=== PATIENT | female | born 1950 | race Caucasian/White ===

== ENCOUNTER 2021-03-27 18:25 | Emergency (ER) | payer MEDICARE ==
--- NOTE | 2021-03-27 19:40 | EDM.PDOC ---
ED HPI GENERAL MEDICAL PROBLEM - General Chief Complaint: Genitourinary Problem Stated Complaint: LEG PAIN Time Seen by Provider: 03/27/21 19:30 Source of Information: Reports: Patient History Limitations: Reports: No Limitations - History of Present Illness INITIAL COMMENTS - FREE TEXT/NARRATIVE: Karin Lamb is a 70-year-old female presenting to the ED for evaluation of possible UTI. She awoke this morning with significant dysuria, dark cloudy urine, and bladder spasms. 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 She is seeing an oncologist who has been managing her left foot pain but she wants a second opinion since she is here to evaluate why she is having increasing pain and swelling of her left foot especially over the second and third metatarsals. This has been ongoing for months and worsening. She does have bilateral pedal edema and erythema with slight increase in temperature of both lower extremities. She denies any fever, chills, back pain other than her chronic pain due to the metastasis. Had no nausea, vomiting, or diarrhea. Pelvic Pain Score (Numeric/FACES): 5 - Related Data Allergies Allergy/AdvReac Type Severity Reaction Status Date / Time No Known Allergies Allergy Verified 03/27/21 18:58 Home Meds: Home Meds Citalopram [Citalopram HBr] 40 mg PO DAILY 03/27/21 [History] Furosemide [Lasix] 20 mg PO ASDIRECTED 03/27/21 [History] Gabapentin [Neurontin] 300 mg PO TID 03/27/21 [History] Levothyroxine 125 mcg PO ACBREAKFAST 03/27/21 [History] [employer] Carbonate 900 mg PO DAILY 03/27/21 [History] Magnesium 3 tab PO DAILY 03/27/21 [History] Mecobalamin [B12 Active] 1 tab PO DAILY 03/27/21 [History] Morphine [MS Contin] 30 mg PO Q12H 03/27/21 [History] Rivaroxaban [Xarelto] 15 mg PO DAILY 03/27/21 [History] Sennosides [Senna] 2 cap PO BID 03/27/21 [History] busPIRone [Buspar] 30 mg PO BID 03/27/21 [History] traZODone 100 mg PO BEDTIME 03/27/21 [History] Past Medical History HEENT History: Reports: Glaucoma, Impaired Vision Cardiovascular History: Reports: Afib Respiratory History: Reports: Asthma 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: Neurological History: Reports: Neuropathy, Peripheral Psychiatric History: Reports: Anxiety Endocrine/Metabolic History: Reports: Hypomagnesemia Oncologic (Cancer) History: Reports: Colon, Liver, Lung - Infectious Disease History Infectious Disease History: Reports: Chicken Pox, Influenza, Measles - Past Surgical History Female Surgical History: Reports: Salpingo-Oophorectomy Social & Family History - Tobacco Use Tobacco Use Status *Q: Never Tobacco User - Caffeine Use Caffeine Use: Reports: None - Recreational Drug Use Recreational Drug Use: No ED ROS GENERAL - Review of Systems Review Of Systems: See Below Constitutional: Reports: No Symptoms HEENT: Reports: No Symptoms Respiratory: Reports: No Symptoms Cardiovascular: Reports: Edema (Bilateral lower extremity edema) Endocrine: Reports: No Symptoms GI/Abdominal: Reports: Abdominal Pain (Suprapubic pain) : Reports: Dysuria, Frequency, Urgency Musculoskeletal: Reports: Foot Pain (Left foot pain and redness in bilateral lower extremities) Skin: Reports: Erythema (Bilateral lower extremities) Neurological: Reports: No Symptoms Psychiatric: Reports: No Symptoms Hematologic/Lymphatic: Reports: No Symptoms Immunologic: Reports: No Symptoms ED EXAM, RENAL/ - Physical Exam Exam: See Below Exam Limited By: No Limitations General Appearance: Alert, No Apparent Distress, Anxious Eye Exam: Bilateral Eye: EOMI, PERRL Throat/Mouth: Normal Inspection, Normal Oropharynx, Normal Voice, No Airway Compromise Head: Atraumatic, Normocephalic Neck: Normal Inspection, Supple. No: Lymphadenopathy (R), Lymphadenopathy (L) Respiratory/Chest: No Respiratory Distress, Lungs Clear, Normal Breath Sounds Cardiovascular: Normal Peripheral Pulses, Regular Rate, Rhythm, No Murmur GI/Abdominal: Normal Bowel Sounds, Soft, Tender (Suprapubic). No: Guarding, Rebound Back Exam: No: CVA Tenderness (R), CVA Tenderness (L) Extremities: Pedal Edema, Joint Swelling (Bilateral ankles left greater than right), Increased Warmth (Bilateral lower extremities from low calf to feet), Other (Tenderness to palpation over the left distal second and third metatarsals) Neurological: Alert, Oriented, Normal Cognition, No Motor/Sensory Deficits Skin Exam: Warm, Erythema (Bilateral lower extremities from low calf to feet), Increased Warmth (Bilateral lower extremities from low calf to feet) Lymphatic: No Adenopathy Course - Vital Signs Last Recorded V/S: Last Vital Signs Temp 36.3 C 03/27/21 19:08 Pulse 72 03/27/21 19:08 Resp 20 03/27/21 19:08 BP 148/55 H 03/27/21 19:08 Pulse Ox 94 L 03/27/21 19:08 - Orders/Labs/Meds Orders: Active Orders 24 hr Category Date Time Status Foot Comp Min 3V Lt [CR] Stat Exams 03/27/21 19:41 Taken Labs: Laboratory Tests 03/27/21 03/27/21 03/27/21 Range/Units 18:54 19:41 19:41 WBC 5.8 (4.5-11.0) K/uL RBC 2.65 L (3.30-5.50) M/uL Hgb 8.1 L (12.0-15.0) g/dL Hct 26.7 L (36.0-48.0) % MCV 101 H (80-98) fL MCH 31 (27-31) pg MCHC 30 L (32-36) % Plt Count 74 L (150-400) K/uL Neut % (Auto) 75.7 H (36-66) % Lymph % (Auto) 9.8 L (24-44) % [place] % (Auto) 13.6 H (2-6) % Eos % (Auto) 0.7 L (2-4) % Baso % (Auto) 0.2 (0-1) % C-Reactive Protein 1.66 H (0.0-0.3) mg/dL Urine Color Yellow (YELLOW) Urine Appearance Turbid A (CLEAR) Urine pH 7.0 (5.0-8.0) Ur Specific [place] 1.020 (1.008-1.030) Urine Protein 100 H (NEGATIVE) mg/dL Urine Glucose (UA) Negative (NEGATIVE) mg/dL Urine Ketones Negative (NEGATIVE) mg/dL Urine Occult Blood Large H (NEGATIVE) Urine Nitrite Negative (NEGATIVE) Urine Bilirubin Negative (NEGATIVE) Urine Urobilinogen 1.0 (0.2-1.0) EU/dL Ur Leukocyte Esterase Large H (NEGATIVE) Urine RBC Packed H (0-5) Urine WBC Packed H (0-5) Ur Epithelial Cells Not seen Amorphous Sediment Occasional Urine Bacteria Moderate Urine Mucus Occasional - Re-Assessments/Exams Free Text/Narrative Re-Assessment/Exam: 03/27/21 20:23 on examination, the patient has bilateral lower extremity redness, swelling, and increased temperature from the low calf to the toes. She has significant tenderness to palpation over the distal second and third metatarsals on the left. Her cancer initially was anal cancer with metastasis to the lung, liver, and now spine. I am concerned that there may be a metastasis to the second metatarsal so we will get an x-ray to evaluate for this. Her urinalysis is very significant for a UTI with large leukocyte esterase and packed field with WBCs and RBCs. We will need to start her on antibiotics for this. Although there is increased redness, swelling, and tenderness in the lower extremities, I am not convinced that this is an infection so we will get a CBC and CRP to evaluate for this. As the redness and swelling has been ongoing for several months this would contradict this being an acute infection and more likely a chronic inflammatory response causing left- sided plantar fasciitis and bilateral pedal edema. 03/27/21 20:27 x-ray of the left foot shows 2 screws securing a fracture through the distal first metatarsal. There is adequate healing of this fracture. There is no lytic lesion seen on either the second or third metatarsals to account for the patient's pain. Her CBC shows a leukocyte count of 5.8 with a hemoglobin of 8.1, hematocrit of 26.7 and a platelet count of 74,000. Her C- reactive protein is elevated at 1.66. We will start the patient on cephalexin 500 mg 3 times a day for 7 days for her UTI. This prescription will be sent out to the [facility] machine. This could potentially also cover any cellulitis if this in fact is what is causing the redness, increased temperature, and pain. In her left foot this is likely plantar fasciitis secondary to chronic inflammation. She has taken the insoles out of her shoes so that they fit properly since she has so much edema, this is likely contributing to the plantar fasciitis. I recommend a high arch support to take the pressure off the fascia. Departure - Departure Time of Disposition: 20:30 Disposition: Home, Self-Care Clinical Impression: Plantar fasciitis of left foot, Pedal edema Urinary tract infection Qualifiers: Urinary tract infection type: acute cystitis Hematuria presence: with hematuria Qualified Code(s): N30.01 - Acute cystitis with hematuria - Discharge Information Instructions: Plantar Fasciitis, Urinary Tract Infection, Adult, [id number] Referrals: PCP,None [Primary Care Provider] - Forms: ED Department Discharge Care Plan Goals: Your labs show that you have a significant urinary tract infection. We will culture this to make sure the antibiotic you are using will cover the bacteria growing in your urine. We will contact you within 72 hours if the culture shows resistance of the organism to the antibiotic and change your antibiotic. The antibiotic you will be taking is cephalexin 500 mg 3 times a day. This has been sent out to the [facility] machine so you may start it tonight. You also have evidence for plantar fasciitis which is an acute inflammation of the plantar fascia (arch of the foot). The x-ray of the foot showed the 2 screws in the first metatarsal that repaired the fracture previously but no indication of metastasis to the bones in the foot. For the plantar fasciitis, I recommend wearing a high arch good supporting shoe as the current shoe you are wearing has no arch support and is likely contributing to the development of this condition. You may take Aleve 1 tablet twice daily for the pain. Elevating the feet above the level of the heart may help reduce the swelling. Sepsis Event Note (ED) - Evaluation Sepsis Screening Result: No Definite Risk - Focused Exam Vital Signs: Vital Signs Temp Pulse Resp BP Pulse Ox 03/27/21 19:08 36.3 C 72 20 148/55 H 94 L 03/27/21 18:56 36.3 C 72 20 148/55 H 94 L - Problem List & Annotations (1) Pedal edema SNOMED Code(s): 268089583 Code(s): R60.0 - LOCALIZED EDEMA Status: Acute Priority: Medium Current Visit: Yes (2) Plantar fasciitis of left foot SNOMED Code(s): 275511623 Code(s): M72.2 - PLANTAR FASCIAL FIBROMATOSIS Status: Acute Priority: Medium Current Visit: Yes (3) Urinary tract infection SNOMED Code(s): 68848692 Code(s): N39.0 - URINARY TRACT INFECTION, SITE NOT SPECIFIED Status: Acute Priority: Medium Current Visit: Yes Qualifiers: Urinary tract infection type: acute cystitis Hematuria presence: with he maturia Qualified Code(s): N30.01 - Acute cystitis with hematuria - Problem List Review Problem List Initiated/Reviewed/Updated: Yes - My Orders Last 24 Hours: My Active Orders 03/27/21 19:41 Foot Comp Min 3V Lt [CR] Stat - Assessment/Plan Last 24 Hours: My Active Orders 03/27/21 19:41 Foot Comp Min 3V Lt [CR] Stat
--- NOTE | 2021-03-28 10:24 | CR ---
Foot Comp Min 3V Lt CLINICAL HISTORY: Second and third metatarsal pain FINDINGS: There is no acute fracture or dislocation within the foot. No destructive changes are present. There are fixation screws and some deformity at the distal first metatarsal likely related previous surgery. There is osteoarthritic change and bunion formation at the first MTP joint. There are some mild hammertoe deformities. Patient is a moderate size calcaneal spur. IMPRESSION: No acute bony process. 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
== END 2021-03-27 21:10 | disposition home or self-care (01) ==
LOC: JP.ED 18:25
DX: N30.01 Acute cystitis with hematuria (principal); R60.0 Localized edema; M72.2 Plantar fascial fibromatosis; I48.91 Unspecified atrial fibrillation; Z79.01 Long term (current) use of anticoagulants; Z79.899 Other long term (current) drug therapy
CPT/HCPCS: 36415; 73630-26-LT; 73630-LT; 81001; 85025; 86140; 99284-25

== ENCOUNTER 2021-04-14 18:00 | Inpatient (IN) | payer MEDICARE ==
[2021-04-14] MEDS ORDERED: Sodium Chloride 0.9% 10 ML Syringe FLUSH PRN ×2 (18:53→22:10)
[2021-04-14] MEDS ORDERED: Lactated Ringers 1,000 ML IV SCH (19:00)
--- NOTE | 2021-04-14 19:08 | EDM.PDOC ---
ED HPI GENERAL MEDICAL PROBLEM - General Chief Complaint: Gastrointestinal Problem Stated Complaint: BLEEDING Time Seen by Provider: 04/14/21 18:07 Source of Information: Reports: Patient, Family, RN Notes Reviewed History Limitations: Reports: No Limitations - History of Present Illness INITIAL COMMENTS - FREE TEXT/NARRATIVE: 70-year-old female presents emergency department day complaint of bright red blood per rectum, she has a known history of anal rectal cancer last 18 months diagnosed on colonoscopy. Has went through several rounds of chemotherapy and 2 rounds of radiation treatment. Known metastases to lung liver and bone. She states for this particular event approximately 2 hours prior had bright red blood per rectum has had 2 episodes of bright red blood per rectum does feel lightheaded no nausea vomiting no shortness of breath no chest pain no abdominal discomfort Rectal Pain Score (Numeric/FACES): 3 - Related Data Allergies Allergy/AdvReac Type Severity Reaction Status Date / Time No Known Allergies Allergy Verified 04/14/21 18:32 Home Meds: Home Meds Citalopram [Citalopram HBr] 40 mg PO DAILY 03/27/21 [History] Furosemide [Lasix] 20 mg PO BID 03/27/21 [History] Gabapentin [Neurontin] 300 mg PO TID 03/27/21 [History] Levothyroxine 125 mcg PO ACBREAKFAST 03/27/21 [History] [place] Carbonate 900 mg PO DAILY 03/27/21 [History] Magnesium 3 tab PO DAILY 03/27/21 [History] Mecobalamin [B12 Active] 1 tab PO DAILY 03/27/21 [History] Morphine [MS Contin] 30 mg PO Q12H 03/27/21 [History] Rivaroxaban [Xarelto] 15 mg PO DAILY 03/27/21 [History] Sennosides [Senna] 2 cap PO BID 03/27/21 [History] busPIRone [Buspar] 30 mg PO BID 03/27/21 [History] traZODone 100 mg PO BEDTIME 03/27/21 [History] Past Medical History HEENT History: Reports: Glaucoma, Impaired Vision Cardiovascular History: Reports: Afib Respiratory History: Reports: Asthma 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: Neurological History: Reports: Neuropathy, Peripheral Psychiatric History: Reports: Anxiety Endocrine/Metabolic History: Reports: Hypomagnesemia Oncologic (Cancer) History: Reports: Colon, Liver, Lung - Infectious Disease History Infectious Disease History: Reports: Chicken Pox, Influenza, Measles - Past Surgical History Female Surgical History: Reports: Salpingo-Oophorectomy Social & Family History - Tobacco Use Tobacco Use Status *Q: Never Tobacco User - Caffeine Use Caffeine Use: Reports: None - Recreational Drug Use Recreational Drug Use: No ED ROS GENERAL - Review of Systems Review Of Systems: See Below Constitutional: Reports: No Symptoms Respiratory: Reports: No Symptoms Cardiovascular: Reports: Lightheadedness GI/Abdominal: Reports: Bloody Stool : Reports: No Symptoms ED EXAM, GI/ABD - Physical Exam Exam: See Below Exam Limited By: No Limitations General Appearance: Alert, WD/WN, No Apparent Distress Respiratory/Chest: No Respiratory Distress, Lungs Clear, Normal Breath Sounds, No Accessory Muscle Use, Chest Non-Tender Cardiovascular: Regular Rate, Rhythm, No Murmur GI/Abdominal Exam: Soft, Non-Tender Course - Vital Signs Last Recorded V/S: Last Vital Signs Temp 97.7 F 04/14/21 18:29 Pulse 65 04/14/21 18:58 Resp 16 04/14/21 18:29 BP 119/54 L 04/14/21 18:58 Pulse Ox 97 04/14/21 18:29 - Orders/Labs/Meds Orders: Active Orders 24 hr Category Date Time Status Peripheral IV Care [RC] . DIRECTED Care 04/14/21 18:53 Active RED BLOOD CELLS LP [BBK] Stat Lab 04/14/21 20:14 Ordered TYPE AND SCREEN [BBK] Stat Lab 04/14/21 20:14 Ordered Lactated Ringers [Ringers, Lactated] 1,000 ml Med 04/14/21 19:00 Active IV ASDIRECTED Sodium Chloride 0.9% [Saline Flush] Med 04/14/21 18:53 Active 10 ml FLUSH ASDIRECTED PRN Peripheral IV Insertion Adult [OM.PC] Urgent Oth 04/14/21 18:53 Ordered Transfuse Red Blood Cells [COMM] Stat Oth 04/14/21 20:14 Ordered Medication Orders Lactated Ringer's (Ringers, Lactated) 1,000 mls @ 500 mls/hr IV ASDIRECTED KEI Last Admin: 04/14/21 19:21 Dose: 500 mls/hr Documented by: SALOMON Sodium Chloride (Sodium Chloride 0.9% 10 Ml Syringe) 10 ml FLUSH ASDIRECTED PRN PRN Reason: Keep Vein Open Last Admin: 04/14/21 19:22 Dose: 10 ml Documented by: SALOMON Labs: Laboratory Tests 04/14/21 04/14/21 04/14/21 Range/Units 19:20 19:20 19:20 WBC 18.1 H (4.5-11.0) K/uL RBC 2.47 L (3.30-5.50) M/uL Hgb 7.9 L (12.0-15.0) g/dL Hct 24.9 L (36.0-48.0) % MCV 101 H (80-98) fL MCH 32 H (27-31) pg MCHC 32 (32-36) % Plt Count 39 L (150-400) K/uL Add Manual Diff Yes Neutrophils % (Manual) 85 H (36-66) % Band Neutrophils % 4 L (5-11) % Lymphocytes % (Manual) 3 L (24-44) % Monocytes % (Manual) 7 H (2-6) % Eosinophils % (Manual) 1 L (2-4) % Sodium 138 L (140-148) mmol/L Potassium 3.7 (3.6-5.2) mmol/L Chloride 102 (100-108) mmol/L Carbon Dioxide 28 (21-32) mmol/L Anion Gap 11.7 (5.0-14.0) mmol/L BUN 17 (7-18) mg/dL Creatinine 0.8 (0.6-1.0) mg/dL Est Cr Clr Drug Dosing 53.35 mL/min Estimated GFR (MDRD) > 60 (>60) Glucose 105 (74-106) mg/dL Lactic Acid 0.9 (0.4-2.0) mmol/L Calcium 8.5 (8.5-10.1) mg/dL Total Bilirubin 0.4 (0.2-1.0) mg/dL AST 46 H (15-37) U/L ALT 20 (12-78) U/L Alkaline Phosphatase 367 H (46-116) U/L Total Protein 6.8 (6.4-8.2) g/dL Albumin 2.7 L (3.4-5.0) g/dL Globulin 4.1 H (2.3-3.5) g/dL Albumin/Globulin Ratio 0.7 L (1.2-2.2) Meds: Medications Generic Name Dose Route Start Last Admin Trade Name Scarq PRN Reason Stop Dose Admin Lactated Ringer's 1,000 mls @ 500 mls/hr 04/14/21 19:00 04/14/21 19:21 Ringers, Lactated IV 500 mls/hr ASDIRECTED KEI Administration Sodium Chloride 10 ml 04/14/21 18:53 04/14/21 19:22 Sodium Chloride 0.9% 10 Ml Syringe FLUSH 10 ml ASDIRECTED PRN Administration Keep Vein Open Departure - Departure Time of Disposition: 20:17 Disposition: Admitted As Inpatient 65 Condition: Poor Clinical Impression: Bright red blood per rectum - Discharge Information Referrals: PCP,None [Primary Care Provider] - Forms: ED Department Discharge Sepsis Event Note (ED) - Evaluation Sepsis Screening Result: No Definite Risk - Focused Exam Vital Signs: Vital Signs Temp Pulse Resp BP Pulse Ox 04/14/21 18:58 65 119/54 L 04/14/21 18:29 97.7 F 62 16 129/63 97 04/14/21 18:27 97.7 F 62 16 129/63 97 - My Orders Last 24 Hours: My Active Orders 04/14/21 18:53 Peripheral IV Care [RC] . DIRECTED Sodium Chloride 0.9% [Saline Flush] 10 ml FLUSH ASDIRECTED PRN Peripheral IV Insertion Adult [OM.PC] Urgent 04/14/21 19:00 Lactated Ringers [Ringers, Lactated] 1,000 ml IV ASDIRECTED 04/14/21 20:14 RED BLOOD CELLS LP [BBK] Stat TYPE AND SCREEN [BBK] Stat Transfuse Red Blood Cells [COMM] Stat - Assessment/Plan Last 24 Hours: My Active Orders 04/14/21 18:53 Peripheral IV Care [RC] . DIRECTED Sodium Chloride 0.9% [Saline Flush] 10 ml FLUSH ASDIRECTED PRN Peripheral IV Insertion Adult [OM.PC] Urgent 04/14/21 19:00 Lactated Ringers [Ringers, Lactated] 1,000 ml IV ASDIRECTED 04/14/21 20:14 RED BLOOD CELLS LP [BBK] Stat TYPE AND SCREEN [BBK] Stat Transfuse Red Blood Cells [COMM] Stat Plan: Assessment Acuity = acute Site and laterality = bright red blood per rectum complicated patient with known history of anorectal cancer with metastases to the lung liver bone Etiology = unknown Manifestations = lightheadedness Location of injury = Home Lab values = hemoglobin 18.1 consistent with the leukopenia hemoglobin 7.9 consi stent with macro chromic anemia platelets low at 39 consistent with thrombocytopenia, CMP lactic acid within normal limits Plan Call discussed case with hospitalist on-call he agreed to come evaluate the patient emergency department for admission at 2009 also had a long discussion with her on future outcomes plans and prognosis unsure if colonoscopy is a good approach for her given that she has known history of metastases has gone through 18 months of chemotherapy as well as a couple doses of radiation therapy she would feel better for symptomatic care with a transfusion of blood This note was dictated using i-nexus voice recognition software please call with any questions on syntax or grammar.
--- NOTE | 2021-04-14 21:55 | PCM.HP.2 ---
H&P History of Present Illness - General Date of Service: 04/14/21 Admit Problem/Dx: Admission Diagnosis/Problem Admission Diagnosis/Problem Bleeding Source of Information: Patient, Provider, RN Notes Reviewed History Limitations: Reports: No Limitations - History of Present Illness Initial Comments - Free Text/Narative: Ms. Pacheco is a 70-year-old woman who was admitted through the emergency department with hematochezia and anemia secondary to a lower GI bleed. She denies any previous history of GI bleed. 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 She has been receiving chemotherapy twice monthly and recently completed a course of radiation to her spine. She had been feeling relatively well when she noted 2 large bloody bowel movements at home this evening and presented to the emergency department for further evaluation. Platelets are low at 39,000 and her hemoglobin was found to be 7.9, white blood cell count elevated. She has had no further hematochezia since she is arrived in the emergency department. She is treated with Xarelto, because of a clot that developed associated with her right subclavian port. Rectal Pain Score (Numeric/FACES): 3 - Related Data Allergies/Adverse Reactions: Allergies Allergy/AdvReac Type Severity Reaction Status Date / Time No Known Allergies Allergy Verified 04/14/21 18:32 Home Medications: Home Meds Citalopram [Citalopram HBr] 40 mg PO DAILY 03/27/21 [History] Furosemide [Lasix] 20 mg PO BID 03/27/21 [History] Gabapentin [Neurontin] 300 mg PO TID 03/27/21 [History] Levothyroxine 125 mcg PO ACBREAKFAST 03/27/21 [History] [place] Carbonate 900 mg PO DAILY 03/27/21 [History] Magnesium 3 tab PO DAILY 03/27/21 [History] Mecobalamin [B12 Active] 1 tab PO DAILY 03/27/21 [History] Morphine [MS Contin] 30 mg PO Q12H 03/27/21 [History] Rivaroxaban [Xarelto] 15 mg PO DAILY 03/27/21 [History] Sennosides [Senna] 2 cap PO BID 03/27/21 [History] busPIRone [Buspar] 30 mg PO BID 03/27/21 [History] traZODone 100 mg PO BEDTIME 03/27/21 [History] Past Medical History HEENT History: Reports: Glaucoma, Impaired Vision Cardiovascular History: Reports: Afib Respiratory History: Reports: Asthma [employer] History: Reports: Neurological History: Reports: Neuropathy, Peripheral Psychiatric History: Reports: Anxiety Endocrine/Metabolic History: Reports: Hypomagnesemia Oncologic (Cancer) History: Reports: Colon, Liver, Lung - Infectious Disease History Infectious Disease History: Reports: Chicken Pox, Influenza, Measles - Past Surgical History Female Surgical History: Reports: Salpingo-Oophorectomy Social & Family History - Tobacco Use Tobacco Use Status *Q: Never Tobacco User - Caffeine Use Caffeine Use: Reports: None - Recreational Drug Use Recreational Drug Use: No H&P Review of Systems - Review of Systems: Review Of Systems: See Below General: Reports: Weakness, Fatigue. Denies: Fever, Chills HEENT: Reports: No Symptoms Pulmonary: Reports: No Symptoms Cardiovascular: Reports: No Symptoms Gastrointestinal: Reports: Hematochezia. Denies: Abdominal Pain, Difficulty Swallowing, Distension, Hematemesis, Melena, Nausea, Vomiting Genitourinary: Reports: No Symptoms Musculoskeletal: Reports: No Symptoms Skin: Reports: No Symptoms Psychiatric: Reports: No Symptoms Neurological: Reports: No Symptoms Hematologic/Lymphatic: Reports: No Symptoms Immunologic: Reports: No Symptoms Exam - Exam Exam: See Below - Vital Signs Vital Signs: Last Vital Signs Temp 97.7 F 04/14/21 18:29 Pulse 60 04/14/21 21:08 Resp 16 04/14/21 18:29 BP 153/70 H 04/14/21 21:08 Pulse Ox 97 04/14/21 21:08 Weight: 175 lb - Exam General: Alert, Oriented, Cooperative, Mild Distress HEENT: Conjunctiva Clear, Hearing Intact, Mucosa Moist & [place], Normal Nasal Septum, Posterior Pharynx Clear, Pupils Equal Neck: Supple, Trachea Midline, +2 Carotid Pulse wo Bruit Lungs: Clear to Auscultation, Normal Respiratory Effort Cardiovascular: Regular Rate, Regular Rhythm, Normal S1, Normal S2, Systolic Murmur. No: Diastolic Murmur GI/Abdominal Exam: Soft, Non-Tender, No Organomegaly, No Distention Back Exam: Normal Inspection, Full Range of Motion Extremities: Non-Tender, No Pedal Edema Skin: Warm, Dry, Intact Neurological: Cranial Nerves Intact, Strength Equal Bilateral, Normal Speech, Normal Tone, Sensation Intact. No: Focal Deficit Neuro Extensive - Mental Status: Alert, Oriented x3, Normal Mood/Affect, Normal Cognition, Memory Intact - Patient Data Lab Results Last 24 hrs: Laboratory Results - last 24 hr 04/14/21 04/14/21 04/14/21 Range/Units 19:20 19:20 19:20 WBC 18.1 H (4.5-11.0) K/uL RBC 2.47 L (3.30-5.50) M/uL Hgb 7.9 L (12.0-15.0) g/dL Hct 24.9 L (36.0-48.0) % MCV 101 H (80-98) fL MCH 32 H (27-31) pg MCHC 32 (32-36) % Plt Count 39 L (150-400) K/uL Add Manual Diff Yes Neutrophils % (Manual) 85 H (36-66) % Band Neutrophils % 4 L (5-11) % Lymphocytes % (Manual) 3 L (24-44) % Monocytes % (Manual) 7 H (2-6) % Eosinophils % (Manual) 1 L (2-4) % Sodium 138 L (140-148) mmol/L Potassium 3.7 (3.6-5.2) mmol/L Chloride 102 (100-108) mmol/L Carbon Dioxide 28 (21-32) mmol/L Anion Gap 11.7 (5.0-14.0) mmol/L BUN 17 (7-18) mg/dL Creatinine 0.8 (0.6-1.0) mg/dL Est Cr Clr Drug Dosing 53.35 mL/min Estimated GFR (MDRD) > 60 (>60) Glucose 105 (74-106) mg/dL Lactic Acid 0.9 (0.4-2.0) mmol/L Calcium 8.5 (8.5-10.1) mg/dL Total Bilirubin 0.4 (0.2-1.0) mg/dL AST 46 H (15-37) U/L ALT 20 (12-78) U/L Alkaline Phosphatase 367 H (46-116) U/L Total Protein 6.8 (6.4-8.2) g/dL Albumin 2.7 L (3.4-5.0) g/dL Globulin 4.1 H (2.3-3.5) g/dL Albumin/Globulin Ratio 0.7 L (1.2-2.2) Urine Color (YELLOW) Urine Appearance (CLEAR) Urine pH (5.0-8.0) Ur Specific [place] (1.008-1.030) Urine Protein (NEGATIVE) mg/dL Urine Glucose (UA) (NEGATIVE) mg/dL Urine Ketones (NEGATIVE) mg/dL Urine Occult Blood (NEGATIVE) Urine Nitrite (NEGATIVE) Urine Bilirubin (NEGATIVE) Urine Urobilinogen (0.2-1.0) EU/dL Ur Leukocyte Esterase (NEGATIVE) Urine RBC (0-5) Urine WBC (0-5) Ur Epithelial Cells Amorphous Sediment Urine Bacteria Urine Mucus Blood Type Gel Antibody Screen Crossmatch 04/14/21 04/14/21 Range/Units 19:20 20:30 WBC (4.5-11.0) K/uL RBC (3.30-5.50) M/uL Hgb (12.0-15.0) g/dL Hct (36.0-48.0) % MCV (80-98) fL MCH (27-31) pg MCHC (32-36) % Plt Count (150-400) K/uL Add Manual Diff Neutrophils % (Manual) (36-66) % Band Neutrophils % (5-11) % Lymphocytes % (Manual) (24-44) % Monocytes % (Manual) (2-6) % Eosinophils % (Manual) (2-4) % Sodium (140-148) mmol/L Potassium (3.6-5.2) mmol/L Chloride (100-108) mmol/L Carbon Dioxide (21-32) mmol/L Anion Gap (5.0-14.0) mmol/L BUN (7-18) mg/dL Creatinine (0.6-1.0) mg/dL Est Cr Clr Drug Dosing mL/min Estimated GFR (MDRD) (>60) Glucose (74-106) mg/dL Lactic Acid (0.4-2.0) mmol/L Calcium (8.5-10.1) mg/dL Total Bilirubin (0.2-1.0) mg/dL AST (15-37) U/L ALT (12-78) U/L Alkaline Phosphatase (46-116) U/L Total Protein (6.4-8.2) g/dL Albumin (3.4-5.0) g/dL Globulin (2.3-3.5) g/dL Albumin/Globulin Ratio (1.2-2.2) Urine Color Yellow (YELLOW) Urine Appearance Clear (CLEAR) Urine pH 7.5 (5.0-8.0) Ur Specific [place] 1.020 (1.008-1.030) Urine Protein Negative (NEGATIVE) mg/dL Urine Glucose (UA) Negative (NEGATIVE) mg/dL Urine Ketones Negative (NEGATIVE) mg/dL Urine Occult Blood Small H (NEGATIVE) Urine Nitrite Negative (NEGATIVE) Urine Bilirubin Negative (NEGATIVE) Urine Urobilinogen 0.2 (0.2-1.0) EU/dL Ur Leukocyte Esterase Small H (NEGATIVE) Urine RBC 5-10 H (0-5) Urine WBC 5-10 H (0-5) Ur Epithelial Cells Rare Amorphous Sediment Not seen Urine Bacteria Few Urine Mucus Not seen Blood Type A POSITIVE Gel Antibody Screen Negative Crossmatch See Detail Result Diagrams: 04/14/21 19:20 04/14/21 19:20 Sepsis Event Note - Evaluation Sepsis Screening Result: No Definite Risk - Focused Exam Vital Signs: Vital Signs Temp Pulse Resp BP Pulse Ox 04/14/21 21:08 60 153/70 H 97 04/14/21 18:58 65 119/54 L 04/14/21 18:29 97.7 F 62 16 129/63 97 04/14/21 18:27 97.7 F 62 16 129/63 97 *Q Meaningful Use (ADM) - VTE *Q VTE Pharmacological Contraindications *Q: Active Hemorrhage - VTE Risk Assess *Q Each Risk Factor Represents 1 Point: Swollen Legs, Current, Obesity ( BMI > 25 kg/m2) Total Score 1 Point Risk Factors: 2 Each Risk Factor Represents 2 Points: Age 60 - 74 Years, Malignancy (present or previous) Total Score 2 Point Risk Factors: 4 Each Risk Factor Represents 3 Points: History of DVT/PE Total Score 3 Point Risk Factors: 3 Each Risk Factor Represents 5 Points: None Total Score 5 Point Risk Factors: 0 Venous Thromboembolism Risk Factor Score *Q: 9 Problem List Initiated/Reviewed/Updated: Yes Orders Last 24hrs: Active Orders 24 hr Category Date Time Status Patient Status Manage Transfer [TRANSFER] Routine ADT 04/14/21 21:39 Active Peripheral IV Care [RC] . DIRECTED Care 04/14/21 18:53 Active PATIENT RETYPE [BBK] Stat Lab 04/14/21 19:20 Results RED BLOOD CELLS LP [BBK] Stat Lab 04/14/21 19:20 Results TYPE AND SCREEN [BBK] Stat Lab 04/14/21 19:20 Results Lactated Ringers [Ringers, Lactated] 1,000 ml Med 04/14/21 19:00 Active IV ASDIRECTED Sodium Chloride 0.9% [Saline Flush] Med 04/14/21 18:53 Active 10 ml FLUSH ASDIRECTED PRN Peripheral IV Insertion Adult [OM.PC] Urgent Oth 04/14/21 18:53 Ordered Transfuse Red Blood Cells [COMM] Stat Oth 04/14/21 20:14 Ordered Resuscitation Status Routine Resus Stat 04/14/21 21:42 Ordered Medication Orders Lactated Ringer's (Ringers, Lactated) 1,000 mls @ 500 mls/hr IV ASDIRECTED KEI Last Admin: 04/14/21 19:21 Dose: 500 mls/hr Documented by: SALOMON Sodium Chloride (Sodium Chloride 0.9% 10 Ml Syringe) 10 ml FLUSH ASDIRECTED PRN PRN Reason: Keep Vein Open Last Admin: 04/14/21 19:22 Dose: 10 ml Documented by: SALOMON Assessment/Plan Comment:: ASSESSMENT AND PLAN LOWER GI BLEED-history of underlying rectal carcinoma and currently treated with Xarelto. -Transfuse 1 unit of red blood cells as ordered in the emergency department -Type and cross to hold 2 additional units of red blood cells -Clear liquid diet -Serial hemoglobin levels -Hold Xarelto -Consider colonoscopy, will discuss further in a.m. RECTAL CARCINOMA STAGE IV-currently receiving chemotherapy HISTORY OF DVT-associated with her port on the right. Discussed current therapy with Xarelto in light of active bleeding. -Hold Xarelto MAINTENANCE ISSUES -DVT prophylaxis; SCUDs, hold on anticoagulation because of active bleeding -GI prophylaxis; not indicated -Kessler catheter; not indicated -Nutrition; clear liquid diet -Nicotine dependence; not required CODE STATUS-FULL CODE ADMISSION STATUS-patient will be admitted to inpatient status, expect at least a 2 night hospital stay for evaluation and management of problems as outlined above. At the time of this admission I do not reasonably expected evaluation and management of this problem will require more than a 96 hour hospital stay. DISPOSITION-anticipate discharge to home after the hospital stay. - Mortality Measure Prognosis:: Good
[2021-04-14] MEDS ORDERED: Polyethylene Glycol 3350 Powder 17 GM Packet PO PRN (22:10)
[2021-04-14] MEDS ORDERED: Acetaminophen 325 MG Tab PO PRN (22:10)
[2021-04-14] MEDS ORDERED: Ondansetron 4 MG/2 ML SDV IV PRN (22:10)
[2021-04-14] MEDS: Morphine 30 MG Tab.ER PO SCH (23:04)
[2021-04-14] MEDS ORDERED: traZODone 50 MG Tab PO ONE (23:06)
[2021-04-14] MEDS ORDERED: busPIRone 10 MG Tab PO ONE (23:06)
[2021-04-14] MEDS ORDERED: Gabapentin 300 MG Cap PO ONE (23:06)
[2021-04-15] MEDS: Sodium Chloride 0.9% 1,000 ML IV SCH ×2 (01:59→09:46)
[2021-04-15] MEDS ORDERED: Levothyroxine 25 MCG Tab PO SCH (07:30)
[2021-04-15] MEDS ORDERED: Levothyroxine 100 MCG Tab PO SCH (07:30)
[2021-04-15] MEDS: Morphine 30 MG Tab.ER PO SCH (08:48)
[2021-04-15] MEDS ORDERED: busPIRone 10 MG Tab PO SCH (09:00)
[2021-04-15] MEDS ORDERED: Lithium Carbonate 300 MG Tab.ER PO SCH (09:00)
[2021-04-15] MEDS ORDERED: Non-Formulary Medication 1 Each (Magnesium [Magnesium] 200 MG Tablet) PO SCH (09:00)
[2021-04-15] MEDS ORDERED: Sennosides 8.6 MG Tab PO SCH ×2 (09:00)
[2021-04-15] MEDS ORDERED: Citalopram 20 MG Tab PO SCH (09:00)
[2021-04-15] MEDS ORDERED: Gabapentin 300 MG Cap PO SCH (09:00)
--- NOTE | 2021-04-15 11:25 | PCM.DCSUM1 ---
Discharge Summary - Hospital Course Brief History: Ms. Pacheco is a 70-year-old woman, with a known history of metastatic rectal carcinoma, who was admitted through the emergency department with hematochezia and acute blood loss anemia secondary to a lower GI bleed. - Discharge Data Discharge Date: 04/15/21 Discharge Disposition: Home, Self-Care 01 Condition: Fair - Referral to Home Health Primary Care Physician: PCP None - Discharge Diagnosis/Problem(s) (1) Lower GI bleed SNOMED Code(s): 85776131 ICD Code: K92.2 - GASTROINTESTINAL HEMORRHAGE, UNSPECIFIED Status: Acute Current Visit: Yes (2) Acute blood loss anemia SNOMED Code(s): 279574649 ICD Code: D62 - ACUTE POSTHEMORRHAGIC ANEMIA Status: Acute Current Visit: Yes (3) Rectal cancer metastatic to bone SNOMED Code(s): 336214274 ICD Code: C20 - MALIGNANT NEOPLASM OF RECTUM; C79.51 - SECONDARY MALIGNANT NEOPLASM OF BONE Status: Acute Current Visit: Yes - Patient Summary/Data Hospital Course: Ms. Pacheco is a 70-year-old woman who was admitted through the emergency department with hematochezia and anemia secondary to a lower GI bleed. She denies any previous history of GI bleed. 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 She has been receiving chemotherapy twice monthly and recently completed a course of radiation to her spine. She had been feeling relatively well when she noted 2 large bloody bowel movements at home this evening and presented to the emergency department for further evaluation. Platelets are low at 39,000 and her hemoglobin was found to be 7.9, white blood cell count elevated. She has had no further hematochezia since she is arrived in the emergency department. She is treated with Xarelto, because of a clot that developed associated with her right subclavian port. On admission she was given IV fluids for hydration and was transfused 1 unit of red blood cells as ordered in the emergency department. Because of acute bleeding transfusion was given despite hemoglobin not being below 7. Also on admission Xarelto was held because of her active bleeding. I did review this with the patient that the Xarelto and likely contributed to her bleeding but there was some risk in stopping it because of potential clot formation. Patient relayed to me that she was in agreement with this decision. After admission she had no further active bleeding and hemoglobin remained stable on serial hemoglobin checks. On the morning of discharge I did recommend to her that we continue her hospitalization at least another 24 hours to monitor for ongoing bleeding. I also recommended to her that we proceed with colonoscopy to evaluate for source of her active bleeding. Because she was feeling well she decided to forego further hospitalization and would like to undergo her colonoscopy in the [facility] where she receives her health care. She understands that there is risk for ongoing bleeding but agrees to return to the hospital immediately with any further evidence of active bleeding or symptoms including weakness, shortness of breath, and lightheadedness. She had originally been admitted as an inpatient it was felt that she would require at least a 2 night hospital stay she is discharged after only 1 night per her request. Activity will be as tolerated and she will be on a soft low residue diet. She is going to contact her oncologist about the recent bleeding episode and arranged to have further follow-up in the [facility] within the next week including follow-up hemoglobin level and probable colonoscopy. - Patient Instructions Diet: GI Soft/Low Residue/Low Fiber Activity: As Tolerated Showering/Bathing: No Tub Bathing/Swimming Other/Special Instructions: Patient is going to contact her oncologist to inform her about the bleed and schedule further follow-up and evaluation as needed, including follow-up hemoglobin level and possible colonoscopy. - Discharge Plan *PRESCRIPTION DRUG MONITORING PROGRAM REVIEWED*: Not Applicable *COPY OF PRESCRIPTION DRUG MONITORING REPORT IN PATIENT TIARA: Not Applicable Home Medications: Home Meds Citalopram [Citalopram HBr] 40 mg PO DAILY 03/27/21 [History] Furosemide [Lasix] 20 mg PO BID 03/27/21 [History] Gabapentin [Neurontin] 300 mg PO TID 03/27/21 [History] Levothyroxine 125 mcg PO ACBREAKFAST 03/27/21 [History] [place]brand[place] Carbonate 900 mg PO DAILY 03/27/21 [History] Magnesium 3 tab PO DAILY 03/27/21 [History] Mecobalamin [B12 Active] 1 tab PO DAILY 03/27/21 [History] Morphine [MS Contin] 30 mg PO Q12H 03/27/21 [History] Sennosides [Senna] 2 cap PO BID 03/27/21 [History] busPIRone [Buspar] 30 mg PO BID 03/27/21 [History] traZODone 100 mg PO BEDTIME 03/27/21 [History] - Discharge Summary/Plan Comment DC Time >30 min.: No - Patient Data Vitals - Most Recent: Last Vital Signs Temp 97.6 F 04/15/21 08:00 Pulse 46 L 04/15/21 06:00 Resp 19 04/15/21 10:00 BP 114/45 L 04/15/21 10:00 Pulse Ox 98 04/15/21 10:00 Weight - Most Recent: 176 lb 5.917 oz I&O - Last 24 hours: Intake & Output 04/14/21 04/15/21 04/15/21 22:59 06:59 14:59 Intake Total 0 1258 Balance 0 1258 Lab Results - Last 24 hrs: Laboratory Results - last 24 hr 04/14/21 04/14/21 04/14/21 Range/Units 19:20 19:20 19:20 WBC 18.1 H (4.5-11.0) K/uL RBC 2.47 L (3.30-5.50) M/uL Hgb 7.9 L (12.0-15.0) g/dL Hct 24.9 L (36.0-48.0) % MCV 101 H (80-98) fL MCH 32 H (27-31) pg MCHC 32 (32-36) % Plt Count 39 L (150-400) K/uL Add Manual Diff Yes Neutrophils % (Manual) 85 H (36-66) % Band Neutrophils % 4 L (5-11) % Lymphocytes % (Manual) 3 L (24-44) % Monocytes % (Manual) 7 H (2-6) % Eosinophils % (Manual) 1 L (2-4) % Sodium 138 L (140-148) mmol/L Potassium 3.7 (3.6-5.2) mmol/L Chloride 102 (100-108) mmol/L Carbon Dioxide 28 (21-32) mmol/L Anion Gap 11.7 (5.0-14.0) mmol/L BUN 17 (7-18) mg/dL Creatinine 0.8 (0.6-1.0) mg/dL Est Cr Clr Drug Dosing 53.35 mL/min Estimated GFR (MDRD) > 60 (>60) Glucose 105 (74-106) mg/dL Lactic Acid 0.9 (0.4-2.0) mmol/L Calcium 8.5 (8.5-10.1) mg/dL Magnesium (1.8-2.4) mg/dL Total Bilirubin 0.4 (0.2-1.0) mg/dL AST 46 H (15-37) U/L ALT 20 (12-78) U/L Alkaline Phosphatase 367 H (46-116) U/L Total Protein 6.8 (6.4-8.2) g/dL Albumin 2.7 L (3.4-5.0) g/dL Globulin 4.1 H (2.3-3.5) g/dL Albumin/Globulin Ratio 0.7 L (1.2-2.2) Urine Color (YELLOW) Urine Appearance (CLEAR) Urine pH (5.0-8.0) Ur Specific [place] (1.008-1.030) Urine Protein (NEGATIVE) mg/dL Urine Glucose (UA) (NEGATIVE) mg/dL Urine Ketones (NEGATIVE) mg/dL Urine Occult Blood (NEGATIVE) Urine Nitrite (NEGATIVE) Urine Bilirubin (NEGATIVE) Urine Urobilinogen (0.2-1.0) EU/dL Ur Leukocyte Esterase (NEGATIVE) Urine RBC (0-5) Urine WBC (0-5) Ur Epithelial Cells Amorphous Sediment Urine Bacteria Urine Mucus Blood Type Gel Antibody Screen Crossmatch 04/14/21 04/14/21 04/15/21 Range/Units 19:20 20:30 00:10 WBC (4.5-11.0) K/uL RBC (3.30-5.50) M/uL Hgb 8.8 L (12.0-15.0) g/dL Hct (36.0-48.0) % MCV (80-98) fL MCH (27-31) pg MCHC (32-36) % Plt Count (150-400) K/uL Add Manual Diff Neutrophils % (Manual) (36-66) % Band Neutrophils % (5-11) % Lymphocytes % (Manual) (24-44) % Monocytes % (Manual) (2-6) % Eosinophils % (Manual) (2-4) % Sodium (140-148) mmol/L Potassium (3.6-5.2) mmol/L Chloride (100-108) mmol/L Carbon Dioxide (21-32) mmol/L Anion Gap (5.0-14.0) mmol/L BUN (7-18) mg/dL Creatinine (0.6-1.0) mg/dL Est Cr Clr Drug Dosing mL/min Estimated GFR (MDRD) (>60) Glucose (74-106) mg/dL Lactic Acid (0.4-2.0) mmol/L Calcium (8.5-10.1) mg/dL Magnesium (1.8-2.4) mg/dL Total Bilirubin (0.2-1.0) mg/dL AST (15-37) U/L ALT (12-78) U/L Alkaline Phosphatase (46-116) U/L Total Protein (6.4-8.2) g/dL Albumin (3.4-5.0) g/dL Globulin (2.3-3.5) g/dL Albumin/Globulin Ratio (1.2-2.2) Urine Color Yellow (YELLOW) Urine Appearance Clear (CLEAR) Urine pH 7.5 (5.0-8.0) Ur Specific [place] 1.020 (1.008-1.030) Urine Protein Negative (NEGATIVE) mg/dL Urine Glucose (UA) Negative (NEGATIVE) mg/dL Urine Ketones Negative (NEGATIVE) mg/dL Urine Occult Blood Small H (NEGATIVE) Urine Nitrite Negative (NEGATIVE) Urine Bilirubin Negative (NEGATIVE) Urine Urobilinogen 0.2 (0.2-1.0) EU/dL Ur Leukocyte Esterase Small H (NEGATIVE) Urine RBC 5-10 H (0-5) Urine WBC 5-10 H (0-5) Ur Epithelial Cells Rare Amorphous Sediment Not seen Urine Bacteria Few Urine Mucus Not seen Blood Type A POSITIVE Gel Antibody Screen Negative Crossmatch See Detail 04/15/21 04/15/21 Range/Units 04:25 04:25 WBC 10.8 (4.5-11.0) K/uL RBC 2.80 L (3.30-5.50) M/uL Hgb 8.8 L (12.0-15.0) g/dL Hct 27.7 L (36.0-48.0) % MCV 99 H (80-98) fL MCH 31 (27-31) pg MCHC 32 (32-36) % Plt Count 32 L (150-400) K/uL Add Manual Diff Yes Neutrophils % (Manual) 74 H (36-66) % Band Neutrophils % 3 L (5-11) % Lymphocytes % (Manual) 15 L (24-44) % Monocytes % (Manual) 7 H (2-6) % Eosinophils % (Manual) 1 L (2-4) % Sodium 140 (140-148) mmol/L Potassium 3.6 (3.6-5.2) mmol/L Chloride 107 (100-108) mmol/L Carbon Dioxide 28 (21-32) mmol/L Anion Gap 5.2 (5.0-14.0) mmol/L BUN 13 (7-18) mg/dL Creatinine 0.7 (0.6-1.0) mg/dL Est Cr Clr Drug Dosing 60.98 mL/min Estimated GFR (MDRD) > 60 (>60) Glucose 92 (74-106) mg/dL Lactic Acid (0.4-2.0) mmol/L Calcium 8.2 L (8.5-10.1) mg/dL Magnesium 1.8 (1.8-2.4) mg/dL Total Bilirubin (0.2-1.0) mg/dL AST (15-37) U/L ALT (12-78) U/L Alkaline Phosphatase (46-116) U/L Total Protein (6.4-8.2) g/dL Albumin (3.4-5.0) g/dL Globulin (2.3-3.5) g/dL Albumin/Globulin Ratio (1.2-2.2) Urine Color (YELLOW) Urine Appearance (CLEAR) Urine pH (5.0-8.0) Ur Specific [place] (1.008-1.030) Urine Protein (NEGATIVE) mg/dL Urine Glucose (UA) (NEGATIVE) mg/dL Urine Ketones (NEGATIVE) mg/dL Urine Occult Blood (NEGATIVE) Urine Nitrite (NEGATIVE) Urine Bilirubin (NEGATIVE) Urine Urobilinogen (0.2-1.0) EU/dL Ur Leukocyte Esterase (NEGATIVE) Urine RBC (0-5) Urine WBC (0-5) Ur Epithelial Cells Amorphous Sediment Urine Bacteria Urine Mucus Blood Type Gel Antibody Screen Crossmatch Med Orders - Current: Current Medications Acetaminophen (Acetaminophen 325 Mg Tab) 650 mg PO Q4H PRN PRN Reason: Pain (Mild 1-3)/fever Buspirone HCl (Buspirone 10 Mg Tab) 30 mg PO BID [facility] Last Admin: 04/15/21 08:47 Dose: 30 mg Documented by: Citalopram Hydrobromide (Citalopram 20 Mg Tab) 40 mg PO DAILY [facility] Last Admin: 04/15/21 08:46 Dose: 40 mg Documented by: Gabapentin (Gabapentin 300 Mg Cap) 300 mg PO TID [facility] Last Admin: 04/15/21 08:46 Dose: 300 mg Documented by: Sodium Chloride (Normal Saline) 1,000 mls @ 125 mls/hr IV ASDIRECTED [facility] Last Admin: 04/15/21 09:46 Dose: 125 mls/hr Documented by: Levothyroxine Sodium (Levothyroxine 100 Mcg Tab) 100 mcg PO ACBREAKFAST [facility] Last Admin: 04/15/21 08:46 Dose: 100 mcg Documented by: Levothyroxine Sodium (Levothyroxine 25 Mcg Tab) 25 mcg PO ACBREAKFAST [facility] Last Admin: 04/15/21 08:46 Dose: 25 mcg Documented by: Rembrandt Carbonate (Rembrandt Carbonate 300 Mg Tab.Er) 900 mg PO DAILY [facility] Last Admin: 04/15/21 08:46 Dose: 900 mg Documented by: Morphine Sulfate (Morphine 30 Mg Tab.Er) 30 mg PO BID [facility] Last Admin: 04/15/21 08:48 Dose: 30 mg Documented by: Non-Formulary Medication (Magnesium [Magnesium]) 3 tab PO DAILY [facility] Ondansetron HCl (Ondansetron 4 Mg/2 Ml Sdv) 4 mg IV Q4H PRN PRN Reason: Nausea/Vomiting Polyethylene Glycol (Polyethylene Glycol 3350 Powder 17 Gm Packet) 17 gm PO DAILY PRN PRN Reason: Constipation Senna (Sennosides 8.6 Mg Tab) 17.2 mg PO BID [facility] Last Admin: 04/15/21 08:47 Dose: 17.2 mg Documented by: Sodium Chloride (Sodium Chloride 0.9% 10 Ml Syringe) 10 ml FLUSH ASDIRECTED PRN PRN Reason: Keep Vein Open Trazodone HCl (Trazodone 50 Mg Tab) 100 mg PO BEDTIME [facility] Discontinued Medications Buspirone HCl (Buspirone 10 Mg Tab) 30 mg PO ONETIME ONE Stop: 04/14/21 23:07 Last Admin: 04/14/21 23:30 Dose: 30 mg Documented by: Gabapentin (Gabapentin 300 Mg Cap) 300 mg PO ONETIME ONE Stop: 04/14/21 23:07 Last Admin: 04/14/21 23:30 Dose: 300 mg Documented by: Lactated Ringer's (Ringers, Lactated) 1,000 mls @ 500 mls/hr IV ASDIRECTED KEI Last Admin: 04/14/21 19:21 Dose: 500 mls/hr Documented by: Senna (Sennosides 8.6 Mg Tab) 2 mg PO BID [facility] Sodium Chloride (Sodium Chloride 0.9% 10 Ml Syringe) 10 ml FLUSH ASDIRECTED PRN PRN Reason: Keep Vein Open Last Admin: 04/14/21 19:22 Dose: 10 ml Documented by: Trazodone HCl (Trazodone 50 Mg Tab) 100 mg PO ONETIME ONE Stop: 04/14/21 23:07 Last Admin: 04/14/21 23:30 Dose: 100 mg Documented by: - Exam General: Reports: Alert, Oriented, Cooperative, No Acute Distress Lungs: Reports: Clear to Auscultation, Normal Respiratory Effort Cardiovascular: Reports: Regular Rate, Regular Rhythm, Murmurs GI/Abdominal Exam: Soft, Non-Tender, No Organomegaly, No Distention Extremities: Non-Tender, No Pedal Edema *Q Meaningful Use (DIS) - VTE *Q VTE Pharmacological Contraindications *Q: Active Hemorrhage
[2021-04-15] MEDS ORDERED: traZODone 50 MG Tab PO SCH (21:00)
== END 2021-04-15 12:59 | disposition home or self-care (01) | DRG 378 ==
LOC: JP.ED 18:00 → JP.ICU 21:39
PROVIDERS: ADMIT Hospitalist; ATTEND Hospitalist
PROC: 30233N1 Transfusion of Nonautologous Red Blood Cells into Peripheral Vein, Percutaneous Approach (ICD-10-PCS; principal; 2021-04-14)
DX: K92.1 Melena (principal); K92.2 Gastrointestinal hemorrhage, unspecified; H40.9 Unspecified glaucoma; D62 Acute posthemorrhagic anemia; C79.51 Secondary malignant neoplasm of bone; C78.7 Secondary malignant neoplasm of liver and intrahepatic bile duct; H54.7 Unspecified visual loss; I48.91 Unspecified atrial fibrillation; C19 Malignant neoplasm of rectosigmoid junction; J45.909 Unspecified asthma, uncomplicated; C78.00 Secondary malignant neoplasm of unspecified lung; G62.9 Polyneuropathy, unspecified; F41.9 Anxiety disorder, unspecified; E83.42 Hypomagnesemia; Z85.048 Personal history of other malignant neoplasm of rectum, rectosigmoid junction, and anus; Z92.21 Personal history of antineoplastic chemotherapy; Z92.3 Personal history of irradiation; Z79.01 Long term (current) use of anticoagulants; Z79.899 Other long term (current) drug therapy; Z79.890 Hormone replacement therapy; Z90.79 Acquired absence of other genital organ(s); Z90.722 Acquired absence of ovaries, bilateral
CPT/HCPCS: 36415; 36430; 80053; 81001; 83605; 85025; 86850; 86900; 86901; 86920 ×2; 86922 ×2; J7120; P9016; 80048; 83735; 85018; A9270-GY; C1751; J1642; J7030